=== PATIENT | female | born 1995 | race American Indian/Alaskan Native ===

== ENCOUNTER 2021-05-04 19:24 | Emergency (ER) | payer OTHER ==
[2021-05-04 19:38] VITALS: BP 136/78
--- NOTE | 2021-05-04 20:22 | Emergency Department Report ---
ED Female HPI - General Chief complaint: Urogenital-Female Stated complaint: 16WKS PRE Source: patient Mode of arrival: Ambulatory Limitations: No Limitations - History of Present Illness MD Complaint: vaginal discharge, other (Diagnosed with PROM and oligohydramnios 4 hours ago) -: Sudden, hour(s) (8) Location: other (vaginal) Radiation: non-radiating Severity: mild Severity scale (0 -10): 0 Quality: dull Consistency: intermittent Improves with: other (rest) Worsens with: intercourse Are you Now?: Yes (16 weeks gestation) Associated Symptoms: denies other symptoms. denies: vaginal bleeding, abdominal pain, nausea/vomiting, fever/chills, headaches, loss of appetite, hematuria, rash, seizure, shortness of breath, syncope, weakness, other - Related Data Sexually active: Yes : 2 Para: 1 A: 0 ED Review of Systems ROS: Stated complaint: 16WKS PRE Other details as noted in HPI Constitutional: denies: chills, fever Eyes: denies: eye pain, eye discharge, vision change ENT: denies: ear pain, throat pain Respiratory: denies: cough, shortness of breath, wheezing Cardiovascular: denies: chest pain, palpitations Endocrine: no symptoms reported Gastrointestinal: denies: abdominal pain, nausea, vomiting, diarrhea Genitourinary: discharge (clear vaginal discharge with fluids). denies: urgency, dysuria, frequency, hematuria Musculoskeletal: denies: back pain, joint swelling, arthralgia Skin: denies: rash, lesions Neurological: denies: headache, weakness, numbness, paresthesias, confusion, abnormal gait Psychiatric: denies: anxiety, depression Hematological/Lymphatic: denies: easy bleeding, easy bruising ED Past Medical Hx - Past Medical History Previous Medical History?: No - Surgical History Past Surgical History?: No ED Physical Exam - General Limitations: No Limitations General appearance: alert, in no apparent distress - Head Head exam: Present: atraumatic, normocephalic, normal inspection - Eye Eye exam: Present: normal appearance, PERRL, EOMI Pupils: Present: normal accommodation - ENT ENT exam: Present: normal exam, normal orophraynx, mucous membranes moist, TM's normal bilaterally, normal external ear exam - Neck Neck exam: Present: normal inspection, full ROM - Respiratory Respiratory exam: Present: normal lung sounds bilaterally. Absent: respiratory distress, wheezes, rales, rhonchi, chest wall tenderness, accessory muscle use, decreased breath sounds, prolonged expiratory - Cardiovascular Cardiovascular Exam: Present: regular rate, normal rhythm, normal heart sounds. Absent: systolic murmur, diastolic murmur, rubs, gallop - GI/Abdominal GI/Abdominal exam: Present: soft, normal bowel sounds. Absent: tenderness, guarding, rebound, hyperactive bowel sounds, hypoactive bowel sounds, organomegaly - Extremities Exam Extremities exam: Present: normal inspection, full ROM, normal capillary refill - Back Exam Back exam: Present: normal inspection, full ROM. Absent: tenderness, CVA tenderness (R), CVA tenderness (L), muscle spasm, paraspinal tenderness, vertebral tenderness - Neurological Exam Neurological exam: Present: alert, oriented X3, CN II-XII intact, normal gait, reflexes normal - Psychiatric Psychiatric exam: Present: normal affect, normal mood - Skin Skin exam: Present: warm, dry, intact, normal color. Absent: rash ED Course Vital Signs 05/04/21 19:36 Temperature 98.9 F Pulse Rate 86 Respiratory 18 Rate Blood Pressure 136/78 [Right] O2 Sat by Pulse 100 Oximetry Critical care attestation.: If time is entered above; I have spent that time in minutes in the direct care of this critically ill patient, excluding procedure time. ED Disposition Clinical Impression: Acute urinary tract infection Oligohydramnios in second trimester Qualifiers: Fetus number: single or unspecified fetus Qualified Code(s): O41.02X0 - Oligohydramnios, second trimester, not applicable or unspecified PROM (premature rupture of membranes) Qualifiers: PROM onset of labor timing: unspecified duration between rupture of membranes and onset of labor PROM gestational age: -second trimester Qualified Code(s): O42.912 - premature rupture of membranes, unspecified as to length of time between rupture and onset of labor, second trimester Disposition: 01 HOME / SELF CARE / HOMELESS Is pt being admited?: No Does the pt Need Aspirin: No Condition: Stable Instructions: Oligohydramnios, Premature Rupture and Premature Rupture of Membranes, [id number], Urinary Tract Infection, Adult, [id number] Additional Instructions: Maintain a complete pelvic rest with no strenuous or physical activities, no sexual activities and return to the ED immediately if your symptoms get worse especially if you develop vaginal bleeding, worsening pain, heavy fluid leakage and abdominal pain, fever and chills. Otherwise follow-up with Dr. Covarrubias on Friday May 07, 2021 as scheduled. Referrals: KIESHA COVARRUBIAS MD [Staff Physician] - 3-5 Days Time of Disposition: 20:22 Print Language: BULGARIAN
== END 2021-05-04 21:19 | disposition home or self-care (01) ==
LOC: ED 19:24
DX: O23.42 Unspecified infection of urinary tract in pregnancy, second trimester (principal); N39.0 Urinary tract infection, site not specified; O41.02X0 Oligohydramnios, second trimester, not applicable or unspecified; O42.912 Preterm premature rupture of membranes, unspecified as to length of time between rupture and onset of labor, second trimester; Z3A.16 16 weeks gestation of pregnancy
CPT/HCPCS: 99282